=== PATIENT | female | born 1975 | race Caucasian/White ===

== ENCOUNTER 2017-01-19 14:17 | Emergency (ER) | payer SELFPAY ==
[~2017-01-19] VITALS: Ht 165.1 cm; Wt 88.5 kg
[2017-01-19 14:45] VITALS: BP 133/75
[2017-01-19] MEDS ORDERED: ACETAMINOPHEN/CODEINE#3 (300/30mg) TAB PO ONE (16:00)
[2017-01-19] MEDS ORDERED: ONDANSETRON ODT 4 MG TAB PO ONE (16:00)
== END 2017-01-19 16:58 | disposition home or self-care (01) ==
LOC: ER 14:17
DX: S00.83XA Contusion of other part of head, initial encounter (principal); R11.0 Nausea; Z88.8 Allergy status to other drugs, medicaments and biological substances; W01.0XXA Fall on same level from slipping, tripping and stumbling without subsequent striking against object, initial encounter; Y93.89 Activity, other specified; Y99.8 Other external cause status; Y92.89 Other specified places as the place of occurrence of the external cause
CPT/HCPCS: 70486; 72100; 99284; Q0162

== ENCOUNTER 2017-01-26 07:26 | Emergency (ER) | payer BC, MEDICAID ==
[~2017-01-26] VITALS: Ht 165.1 cm; Wt 86.2 kg
[2017-01-26 07:44] VITALS: BP 139/87
[2017-01-26] MEDS ORDERED: ONDANSETRON HCL 4 MG/2 ML VIAL IM ONE (08:15)
[2017-01-26] MEDS ORDERED: ACETAMINOPHEN/CODEINE#3 (300/30mg) TAB PO ONE (08:15)
== END 2017-01-26 09:18 | disposition home or self-care (01) ==
LOC: ER 07:26
DX: S09.90XA Unspecified injury of head, initial encounter (principal); J32.0 Chronic maxillary sinusitis; W01.0XXA Fall on same level from slipping, tripping and stumbling without subsequent striking against object, initial encounter; Y93.89 Activity, other specified; Y92.89 Other specified places as the place of occurrence of the external cause; Y99.8 Other external cause status
CPT/HCPCS: 70450; 72125; 96372; 99284; J2405

== ENCOUNTER 2017-07-22 17:39 | Inpatient (IN) | payer MEDICAID ==
[~2017-07-22] VITALS: Ht 165.1 cm; Wt 89.6 kg
[2017-07-22] MEDS ORDERED: ONDANSETRON ODT 4 MG TAB PO ONE (18:00)
[2017-07-22] MEDS ORDERED: methylPREDNISolone SOD SUCC 125 MG/2 ML VL IM ONE (18:00)
[2017-07-22] MEDS ORDERED: EPINEPHrine HCL 1 MG/1 ML AMP SC ONE (18:00)
[2017-07-22] MEDS ORDERED: diphenhdrAMINE HCL 50 MG/1 ML VL IM ONE (18:00)
[2017-07-22] MEDS ORDERED: methylPREDNISolone SOD SUCC 125 MG/2 ML VL IV ONE (19:15)
[2017-07-22] MEDS ORDERED: diphenhdrAMINE HCL 50 MG/1 ML VL IV ONE (19:15)
[2017-07-22 19:23] LABS: Basophils # (auto) 0 uL; Basophils % (auto) 0.5 % (0.0-2.0); Eosinophils # (auto) 0.6 uL; Eosinophils % (auto) 8.2 % (0.0-7.0); Hematocrit 39.5 % (36.0-46.0); Lymphocytes # (auto) 2.5 uL; Lymphocytes % (auto) 32.7 % (10.0-50.0); Mean Corpuscular Hemoglobin 31.6 pg (28.0-32.0); Mean Corpuscular Hgb Conc. 35.4 g/dL (32.0-36.0); Mean Corpuscular Volume 89.1 fL (80.0-100.0); Monocytes # (auto) 0.7 uL; Monocytes % (auto) 9.9 % (0.0-12.0); Neutrophils # (auto) 3.7 uL; Neutrophils % (auto) 48.7 % (37.0-80.0); Nucleated Red Blood Cells % 0.1 %; Platelet Count (auto) 289 10^3/uL (140-450); Red Blood Cells 4.44 10^6/uL (4.0-5.20); Red Cell Distribution Width 12.8 % (11.8-14.3); White Blood Cell 7.5 10^3/uL (4.4-10.8)
[2017-07-22 19:44] LABS: BUN/Creatinine Ratio 16.5; Bilirubin, Total 0.3 mg/dL (0.2-1.0); Calcium 8.9 mg/dL (8.5-10.1); Potassium 3.8 mmol/L (3.5-5.1); Total Protein 7.5 g/dL (6.4-8.2)
[2017-07-22] MEDS ORDERED: TEMAZEPAM 15 MG CAP PO PRN (21:15)
[2017-07-22] MEDS ORDERED: ACETAMINOPHEN 325 MG TAB PO PRN (21:15)
[2017-07-22] MEDS ORDERED: FAMOTIDINE (10MG/ML) 2ML VL IV ONE (21:15)
[2017-07-22] MEDS: diphenhdrAMINE HCL 50 MG/1 ML VL IV PRN (21:36)
[2017-07-22] MEDS: ENOXAPARIN SOD 40 MG/0.4 ML SYRINGE SC SCH (21:43)
[2017-07-22 22:00] VITALS: BP 105/72
[2017-07-22 22:10] VITALS: BP 105/72
[2017-07-22] MEDS ORDERED: ATENOLOL 50 MG TAB PO ONE (22:15)
[2017-07-22] MEDS: SODIUM CHLORIDE 0.9% 1,000 ML IV SCH (23:20)
[2017-07-22] MEDS ORDERED: LAM100T PO (23:31)
[2017-07-22] MEDS ORDERED: ATEN50TA PO (23:31)
[2017-07-22] MEDS ORDERED: CLON1TAB3 PO ×2 (23:31)
[2017-07-22] MEDS ORDERED: SERT-135 PO (23:31)
[2017-07-23] MEDS: diphenhdrAMINE HCL 50 MG/1 ML VL IV PRN ×4 (04:03→23:38)
[2017-07-23] MEDS: HYDROcodone-ACET 5/325MG TAB PO PRN ×4 (04:04→21:38)
[2017-07-23 05:00] VITALS: BP 108/64
[2017-07-23 06:15] LABS: Basophils # (auto) 0 uL; Basophils % (auto) 0.1 % (0.0-2.0); Eosinophils # (auto) 0 uL; Eosinophils % (auto) 0.3 % (0.0-7.0); Hematocrit 35.7 % (36.0-46.0); Hemoglobin 12.7 g/dL (12.2-16.2); Lymphocytes # (auto) 0.9 uL; Lymphocytes % (auto) 15.3 % (10.0-50.0); Mean Corpuscular Hemoglobin 31.9 pg (28.0-32.0); Mean Corpuscular Hgb Conc. 35.6 g/dL (32.0-36.0); Mean Corpuscular Volume 89.6 fL (80.0-100.0); Monocytes # (auto) 0.1 uL; Monocytes % (auto) 1.1 % (0.0-12.0); Neutrophils # (auto) 4.7 uL; Neutrophils % (auto) 83.2 % (37.0-80.0); Nucleated Red Blood Cells % 0.3 %; Platelet Count (auto) 249 10^3/uL (140-450); Red Blood Cells 3.98 10^6/uL (4.0-5.20); Red Cell Distribution Width 12.9 % (11.8-14.3); White Blood Cell 5.6 10^3/uL (4.4-10.8)
[2017-07-23 06:22] LABS: Albumin 3.5 g/dL (3.4-5.0); Calcium 8.4 mg/dL (8.5-10.1); Potassium 3.6 mmol/L (3.5-5.1)
[2017-07-23 06:23] LABS: BUN/Creatinine Ratio 16.3
[2017-07-23 06:27] LABS: Bilirubin, Total 0.3 mg/dL (0.2-1.0); Total Protein 7.1 g/dL (6.4-8.2)
[2017-07-23 07:01] LABS: Urine Bacteria NONE SEEN /hpf (None Seen); Urine Blood TRACE /uL (Negative); Urine Mucus FEW (None Seen); Urine Specific Gravity 1.019 (1.001-1.035); Urine WBC 3 /hpf (0 - 5)
[2017-07-23] MEDS: SODIUM CHLORIDE 0.9% 1,000 ML IV SCH ×3 (08:00→20:02)
[2017-07-23 09:00] VITALS: BP 106/62
[2017-07-23] MEDS ORDERED: lamoTRIgine 100 MG TAB PO SCH (10:00)
[2017-07-23] MEDS: FAMOTIDINE (10MG/ML) 2ML VL IV SCH (10:45)
[2017-07-23] MEDS: ATENOLOL 50 MG TAB PO SCH (10:46)
[2017-07-23] MEDS: SERTRALINE HCL 50 MG TAB PO SCH (10:46)
[2017-07-23] MEDS: ENOXAPARIN SOD 40 MG/0.4 ML SYRINGE SC SCH (10:47)
[2017-07-23 13:00] VITALS: BP 122/72
[2017-07-23] MEDS ORDERED: methylPREDNISolone SOD SUCC 40 MG/ML VL IV ONE (14:00)
[2017-07-23] MEDS: clonazePAM 0.5 MG TAB PO PRN ×2 (15:50→21:37)
[2017-07-23 17:00] VITALS: BP 112/62
[2017-07-23] MEDS: ONDANSETRON HCL 4 MG/2 ML VIAL IV PRN ×2 (17:57→23:38)
[2017-07-23] MEDS: methylPREDNISolone SOD SUCC 40 MG/ML VL IV SCH (21:22)
[2017-07-23 22:00] VITALS: BP 124/72
[2017-07-24 05:00] VITALS: BP 114/56
[2017-07-24 05:15] LABS: Basophils # (auto) 0 uL; Basophils % (auto) 0.1 % (0.0-2.0); Eosinophils # (auto) 0 uL; Eosinophils % (auto) 0.1 % (0.0-7.0); Hematocrit 32.3 % (36.0-46.0); Hemoglobin 11.4 g/dL (12.2-16.2); Lymphocytes % (auto) 16.2 % (10.0-50.0); Mean Corpuscular Hemoglobin 31.8 pg (28.0-32.0); Mean Corpuscular Hgb Conc. 35.5 g/dL (32.0-36.0); Mean Corpuscular Volume 89.6 fL (80.0-100.0); Monocytes # (auto) 0.4 uL; Monocytes % (auto) 3.4 % (0.0-12.0); Neutrophils # (auto) 9.9 uL; Neutrophils % (auto) 80.2 % (37.0-80.0); Platelet Count (auto) 214 10^3/uL (140-450); Red Blood Cells 3.61 10^6/uL (4.0-5.20); Red Cell Distribution Width 12.8 % (11.8-14.3); White Blood Cell 12.3 10^3/uL (4.4-10.8)
[2017-07-24 05:33] LABS: BUN/Creatinine Ratio 15.2; Calcium 8.3 mg/dL (8.5-10.1); Potassium 3.7 mmol/L (3.5-5.1)
[2017-07-24] MEDS: HYDROcodone-ACET 5/325MG TAB PO PRN ×4 (05:38→21:25)
[2017-07-24] MEDS: diphenhdrAMINE HCL 50 MG/1 ML VL IV PRN ×3 (05:38→18:28)
[2017-07-24] MEDS: ONDANSETRON HCL 4 MG/2 ML VIAL IV PRN ×4 (05:43→21:24)
[2017-07-24] MEDS: clonazePAM 0.5 MG TAB PO PRN ×3 (05:44→18:29)
[2017-07-24] MEDS: SODIUM CHLORIDE 0.9% 1,000 ML IV SCH (05:48)
[2017-07-24 09:00] VITALS: BP 121/65
[2017-07-24] MEDS: methylPREDNISolone SOD SUCC 40 MG/ML VL IV SCH (10:37)
[2017-07-24] MEDS: FAMOTIDINE (10MG/ML) 2ML VL IV SCH (10:37)
[2017-07-24] MEDS: ATENOLOL 50 MG TAB PO SCH (10:42)
[2017-07-24] MEDS: ENOXAPARIN SOD 40 MG/0.4 ML SYRINGE SC SCH (10:43)
[2017-07-24] MEDS: SERTRALINE HCL 50 MG TAB PO SCH (10:43)
[2017-07-24 14:00] VITALS: BP 113/70
[2017-07-24] MEDS: lamoTRIgine 100 MG TAB PO SCH ×2 (16:24→21:30)
[2017-07-24 17:00] VITALS: BP 123/76
[2017-07-24] MEDS: DOCUSATE SOD 100 MG CAP PO PRN (18:29)
[2017-07-24 22:00] VITALS: BP 114/73
[2017-07-25] MEDS: clonazePAM 0.5 MG TAB PO PRN ×3 (00:13→14:25)
[2017-07-25] MEDS: diphenhdrAMINE HCL 50 MG/1 ML VL IV PRN ×3 (00:13→14:24)
[2017-07-25] MEDS: SODIUM CHLORIDE 0.9% 1,000 ML IV SCH ×2 (00:52)
[2017-07-25] MEDS: ONDANSETRON HCL 4 MG/2 ML VIAL IV PRN ×3 (01:43→11:13)
[2017-07-25] MEDS: HYDROcodone-ACET 5/325MG TAB PO PRN ×4 (01:45→17:31)
[2017-07-25 05:00] VITALS: BP 124/71
[2017-07-25 06:39] LABS: Basophils # (auto) 0 uL; Basophils % (auto) 0.3 % (0.0-2.0); Eosinophils # (auto) 0.2 uL; Eosinophils % (auto) 1.4 % (0.0-7.0); Hematocrit 31.8 % (36.0-46.0); Lymphocytes # (auto) 4.7 uL; Lymphocytes % (auto) 36.9 % (10.0-50.0); Mean Corpuscular Hemoglobin 31.1 pg (28.0-32.0); Mean Corpuscular Hgb Conc. 34.5 g/dL (32.0-36.0); Monocytes # (auto) 0.7 uL; Monocytes % (auto) 5.9 % (0.0-12.0); Neutrophils % (auto) 55.5 % (37.0-80.0); Nucleated Red Blood Cells % 0.1 %; Platelet Count (auto) 214 10^3/uL (140-450); Red Blood Cells 3.54 10^6/uL (4.0-5.20); Red Cell Distribution Width 12.8 % (11.8-14.3); White Blood Cell 12.6 10^3/uL (4.4-10.8)
[2017-07-25 07:01] LABS: BUN/Creatinine Ratio 15.8; Potassium 3.3 mmol/L (3.5-5.1)
[2017-07-25 08:00] VITALS: BP 125/76
[2017-07-25] MEDS ORDERED: methylPREDNISolone SOD SUCC 40 MG/ML VL IV SCH (10:00)
[2017-07-25] MEDS ORDERED: POTASSIUM CHL 20 Meq TABLET PO ONE (10:45)
[2017-07-25] MEDS: FAMOTIDINE (10MG/ML) 2ML VL IV SCH (10:49)
[2017-07-25] MEDS: ATENOLOL 50 MG TAB PO SCH (10:53)
[2017-07-25] MEDS: SERTRALINE HCL 50 MG TAB PO SCH (10:54)
[2017-07-25] MEDS: lamoTRIgine 100 MG TAB PO SCH (10:54)
[2017-07-25] MEDS: ENOXAPARIN SOD 40 MG/0.4 ML SYRINGE SC SCH (10:55)
[2017-07-25] MEDS: DOCUSATE SOD 100 MG CAP PO PRN (11:12)
[2017-07-25 12:00] VITALS: BP 136/60
[2017-07-25 15:00] VITALS: BP 140/83
== END 2017-07-25 19:12 | disposition home or self-care (01) | DRG 385 ==
LOC: ER 17:39 → OVERFLOW 17:40 → WEST WING 22:02
PROVIDERS: ADMIT Nurse Practitioner; ATTEND Internal Medicine
DX: L27.0 Generalized skin eruption due to drugs and medicaments taken internally (principal); N17.0 Acute kidney failure with tubular necrosis; F20.9 Schizophrenia, unspecified; I10 Essential (primary) hypertension; F32.9 Major depressive disorder, single episode, unspecified; F41.9 Anxiety disorder, unspecified; G47.00 Insomnia, unspecified; K59.00 Constipation, unspecified; T50.995A Adverse effect of other drugs, medicaments and biological substances, initial encounter; Z88.6 Allergy status to analgesic agent; Y92.89 Other specified places as the place of occurrence of the external cause
CPT/HCPCS: 36415; 80048; 80053; 81001; 84443; 85025; 94761; 96361; 96374; 96375; J0171; J2405; J3490; Q0162

== ENCOUNTER 2017-11-29 10:43 | Emergency (ER) | payer MEDICAID ==
[~2017-11-29] VITALS: Ht 172.7 cm; Wt 88.0 kg
[~2017-11-29 10:43] MED LIST: ATEN50TA PO; CLON1TAB4 PO; LAM100T PO; SERT-135 PO
[2017-11-29] MEDS ORDERED: SODIUM CHLORIDE 0.9% 1,000 ML IV ONE (10:47)
[2017-11-29] MEDS ORDERED: diphenhdrAMINE HCL 50 MG/1 ML VL IV ONE (11:00)
[2017-11-29] MEDS ORDERED: methylPREDNISolone SOD SUCC 125 MG/2 ML VL IV ONE (11:00)
[2017-11-29 11:30] LABS: Basophils # (auto) 0 uL; Basophils % (auto) 0.2 % (0.0-2.0); Eosinophils # (auto) 0.6 uL; Hematocrit 43.4 % (36.0-46.0); Hemoglobin 15.5 g/dL (12.2-16.2); Lymphocytes % (auto) 13.6 % (10.0-50.0); Mean Corpuscular Hemoglobin 32.8 pg (28.0-32.0); Mean Corpuscular Hgb Conc. 35.8 g/dL (32.0-36.0); Mean Corpuscular Volume 91.6 fL (80.0-100.0); Monocytes # (auto) 0.3 uL; Monocytes % (auto) 4.3 % (0.0-12.0); Neutrophils # (auto) 5.6 uL; Neutrophils % (auto) 73.9 % (37.0-80.0); Nucleated Red Blood Cells % 0.4 %; Platelet Count (auto) 216 10^3/uL (140-450); Red Blood Cells 4.74 10^6/uL (4.0-5.20); Red Cell Distribution Width 13.8 % (11.8-14.3); White Blood Cell 7.6 10^3/uL (4.4-10.8)
[2017-11-29 11:40] LABS: Albumin 3.9 g/dL (3.4-5.0); BUN/Creatinine Ratio 13.7; Calcium 8.4 mg/dL (8.5-10.1); Potassium 3.8 mmol/L (3.5-5.1)
[2017-11-29 11:56] LABS: Bilirubin, Total 0.7 mg/dL (0.2-1.0)
[2017-11-29 13:27] VITALS: BP 111/66
== END 2017-11-29 14:03 | disposition home or self-care (01) ==
LOC: ER 10:43 → EDBD 10:43 → ER 14:03
DX: T78.40XA Allergy, unspecified, initial encounter (principal); I10 Essential (primary) hypertension; F17.210 Nicotine dependence, cigarettes, uncomplicated
CPT/HCPCS: 36415; 73620; 80053; 83735; 85025; 94761; 99285; J2930